=== PATIENT | male | born 1955 | race Caucasian/White ===

== ENCOUNTER → 2016-02-21 | Outpatient (CLI) | payer BC ==
[~2016-02-21] MED LIST: ATOR-22 PO; CIPR-255 PO; FINA5TAB PO; GLC/500 PO; HYDR-5688 PO; METF1TAB85 PO; MULT-506 PO; NITR-5 PO; NITR1CAP16 PO; NITR1CAP32 PO; OMEG10007 PO; PHEN-1043 PO; [UNRECOGNIZED DRUG - OTHER] PO
--- NOTE | 2016-02-21 08:35 | DIAGNOSTIC IMAGING REPORT ---
RENAL ULTRASOUND CLINICAL HISTORY: Hematuria. Neurogenic bladder. Benign prosthetic hyperplasia. COMPARISON STUDY: Renal ultrasound October 27, 2014. TECHNIQUE: Sonography of the kidneys and the urinary bladder was performed. FINDINGS: The right kidney measures 11.9 cm in maximal dimension and the left measures 12.4 cm. There is no hydronephrosis. Note is made of a 1.1 cm cyst arising from the upper pole of the right kidney. Several left renal cysts measure up to 2.4 cm. These are similar to prior exam. Renal echogenicity, size and cortical thickness are normal. Bladder volume was 202 cc on this exam. The patient was unable to void. IMPRESSION: 1. No hydronephrosis. 2. No significant change in several renal cysts. Electronically signed by: Elvis Owens M.D. 02/21/2016 8:33 AM
== END | disposition home or self-care (01) ==
LOC: C.ULTR 07:55
PROVIDERS: ATTEND Urology
DX: N32.0 Bladder-neck obstruction (principal); N31.9 Neuromuscular dysfunction of bladder, unspecified; R31.9 Hematuria, unspecified; N40.0 Benign prostatic hyperplasia without lower urinary tract symptoms; R33.9 Retention of urine, unspecified

== ENCOUNTER 2016-03-08 10:45 | Day surgery (SDC) | payer BC ==
[2016-02-22 10:36] VITALS: BMI 33.0
--- NOTE | 2016-02-22 11:02 | PAT Medication Instructions ---
Service Date Feb 22, 2016. Current Home Medication List Atorvastatin (Lipitor), 20 MG PO QAM Finasteride (Proscar), 5 MG PO QAM Fish Oil (Soledad-3), 1,200 MG PO QAM Metformin Hcl (Glucophage), 1,500 MG PO QAM Metformin Hcl (Glucophage), 500 MG PO QPM Multivitamin (Multivitamin), 1 TAB PO QAM [Nitrofuran], 2 TAB PO PRN PRN for UD Medication Instructions For Your Scheduled Surgery - Hold the following medications 2 weeks prior to surgery: Fish Oil (Soledad-3), 1,200 MG PO QAM - Hold the following medications 48 hours prior to surgery: Metformin Hcl (Glucophage), 1,500 MG PO QAM Metformin Hcl (Glucophage), 500 MG PO QPM - Hold the following medications the morning of surgery: Multivitamin (Multivitamin), 1 TAB PO QAM - Take the following medications the morning of surgery with a sip of water OTHERWISE NOTHING TO EAT OR DRINK AFTER MIDNIGHT: Atorvastatin (Lipitor), 20 MG PO QAM Finasteride (Proscar), 5 MG PO QAM [Nitrofuran], 2 TAB PO PRN PRN for UD (if needed) If you have any questions please call us at [phone] (Unique Bowen PA-C) or [phone] or [phone]
--- NOTE | 2016-02-22 11:37 | DIAGNOSTIC IMAGING REPORT ---
CHEST PREADMISSION(PA/LAT) CLINICAL HISTORY: Preoperative evaluation. COMPARISON STUDY: Chest radiograph December 03, 2006 FINDINGS: Mild elevation of the right hemidiaphragm is unchanged. There is no evidence of pulmonary edema. No consolidation is identified. Cardiomediastinal silhouette is normal. IMPRESSION: No acute cardiopulmonary findings. Electronically signed by: Elvis Owens M.D. 02/22/2016 11:35 AM
[2016-02-22 11:56] LABS: BASO % 0.9 %; BASO ABS # 0.07 K/uL (0-0.2); COMPLETE YES; EOS % 2.7 %; HEMATOCRIT 43.1 % (42-52); IG% 0.3 %; LYMPH % 34.7 %; MEAN CELL VOLUME 86.5 fL (80-100); MEAN CORPUSCULAR HEMOGLOBIN 31.1 pg (25-34); MEAN PLATELET VOLUME 10.4 fL (7.4-10.4); MONO % 4.7 %; NEUT % 56.7 %; PLATELET COUNT 185 K/uL (130-400); RED BLOOD COUNT 4.98 M/uL (4.7-6.1)
[2016-02-22 12:00] LABS: URINE APPEARANCE CLEAR (CLEAR); URINE BILIRUBIN NEG (NEG); URINE COLOR YELLOW; URINE EPITHELIAL CELL AUTO 0-5 /lpf (0-5); URINE NITRITE NEG (NEG); URINE PH 5.5 (4.5-7.5); URINE SPECIFIC GRAVITY 1.019 (1.000-1.030); UROBILINOGEN NEG (NEG)
[2016-02-22 12:04] LABS: MANUAL MICROSCOPIC REQUIRED? NO; REVIEW REQ? NO
[2016-02-22 12:40] LABS: BUN/CREATININE RATIO 19.3 (10-20); CALCIUM 8.8 mg/dl (8.5-10.1); CREATININE 0.98 mg/dl (0.60-1.40); POTASSIUM 4.3 mmol/L (3.5-5.1)
[~2016-03-08] VITALS: Ht 180.3 cm; Wt 107.9 kg
[~2016-03-08 10:45] MED LIST changes: -ATOR-22 PO; -CIPR-255 PO; +CIPROFLOXACIN / D5W 400 MG IV SCH; -FINA5TAB PO; -GLC/500 PO; -HYDR-5688 PO; +LACTATED RINGER'S 1000ML 1,000 ML IV SCH; -METF1TAB85 PO; -MULT-506 PO; -NITR-5 PO; -NITR1CAP16 PO; -NITR1CAP32 PO; -PHEN-1043 PO
[2016-03-08] MEDS ORDERED: EpHEDrine SULFATE INJ 50 MG/ML AMP IV PRN (11:00)
[2016-03-08] MEDS ORDERED: LABETALOL HCL IV 5 MG/ML 20ML IV PRN (11:00)
[2016-03-08] MEDS ORDERED: ONDANSETRON INJ 2 MG/ML 2 ML VIAL IV PRN (11:00)
[2016-03-08] MEDS ORDERED: HYDROmorphone INJ 2 MG/ML SYR/VIAL IV PRN (11:00)
[2016-03-08] MEDS ORDERED: FENTANYL CITRATE INJ 50 MCG/1 ML 2 ML VIAL IV PRN (11:00)
[2016-03-08] MEDS ORDERED: ATROPINE SULFATE 0.1 MG/ML 5ML SYR IV PRN (11:00)
[2016-03-08] MEDS ORDERED: MEPERIDINE HCL 25 MG/ML CARP IV PRN (11:00)
[2016-03-08] MEDS ORDERED: NALOXONE HCL 0.4 MG/1 ML VIAL/CARP IV PRN (11:00)
[2016-03-08] MEDS ORDERED: FLUMAZENIL 0.1 MG/1 ML 10 ML VIAL IV PRN (11:00)
[2016-03-08] MEDS ORDERED: PHENYLEPHRINE 100MCG/ML 5ML SYR IV PRN (11:00)
--- NOTE | 2016-03-08 11:01 | History & Physical Bridge Note ---
H&P Re-Evaluation Bridge Note: I have examined the patient, reviewed the History & Physical and in the interval since the performance of the History & Physical I have noted the following changes of clinical significance: No changes noted
[2016-03-08 11:07] VITALS: BP 192/101; PULSE 80; TEMP 36.4; O2SAT 96; Ht 180.3 cm; Wt 107.9 kg
[2016-03-08] MEDS ORDERED: MIDAZOLAM HCL 1 MG/ML 2ML VIAL ONE (12:15)
[2016-03-08] MEDS ORDERED: FENTANYL CITRATE INJ 50 MCG/1 ML 2 ML VIAL ONE (12:15)
[2016-03-08] MEDS ORDERED: LIDOCAINE HCL 2% 2 ML VIAL (20MG/ML) ONE (12:17)
[2016-03-08] MEDS ORDERED: ONDANSETRON INJ 2 MG/ML 2 ML VIAL ONE (12:17)
[2016-03-08] MEDS ORDERED: DEXAMETHASONE SOD INJ 4 MG/ML VIAL ONE (12:17)
[2016-03-08] MEDS ORDERED: PROPOFOL IV EMULSION 10 MG/ML 20 ML VIAL IV ONE (12:17)
[2016-03-08] MEDS ORDERED: BELLADONNA/OPIUM SUPP 60 MG SUPP PR ONE ×2 (12:42→12:53)
[2016-03-08] MEDS ORDERED: HYDROCODONE/ACETAMOPHEN 5/325MG TAB PO PRN (13:00)
[2016-03-08] MEDS ORDERED: PHEN-1043 PO (13:05)
[2016-03-08] MEDS ORDERED: NITR1CAP16 PO (13:05)
[2016-03-08] MEDS ORDERED: HYDR-5688 PO (13:05)
--- NOTE | 2016-03-08 13:09 | Discharge Instructions ---
Discharge Instructions Admission Reason for Admission: Bph, Retention Discharge Discharge Diagnosis / Problem: BPH, retention Discharge Goals Goal(s): Decrease discomfort, Therapeutic intervention Activity Recommendations Activity Limitations: as noted below Lifting Limitations: gradually increase as tolerated Exercise/Sports Limitations: rest today, gradually increase as tolerated May Resume Sexual Activity: after follow-up appointment Shower/Bathe: no limitations Driving or Machine Use: resume 1 day after discharge . Instructions / Follow-Up Instructions / Follow-Up 1. You may resume taking your Fish Oil in 3 days. 2. You have been prescribed the antibiotic nitrofurantoin. Finish all as directed. 3. Follow-up with Dr. Garrett as scheduled. Please call our office at [phone] if you need to reschedule for any reason. Discharge Diet Recommended Diet: Regular Diet Procedures Procedures Performed: Bipolar Transurethral Resection of Bladder Neck Contracture Pending Studies Studies pending at discharge: no Medical Emergencies . Who to Call and When: Medical Emergencies: If at any time you feel your situation is an emergency, please call 911 immediately. . Non-Emergent Contact Non-Emergency issues call your: Urologist Call Non-Emergent contact if: temperature is above 101.5, your pain is not controlled, your pain is worsening, your pain is unusual for you, your pain is concerning you, you have any medication questions . . "Provider Documentation" section prepared by Elayne Padilla. VTE Core Measure Inpt VTE Proph given/why not?: SCD's [place] Drug Monitoring Program Search Results: patient reviewed within database, no issues identified
--- NOTE | 2016-03-08 13:16 | [facility] Post Operative Brief Note ---
Immediate Operative Summary Operative Date Mar 08, 2016. Pre-Operative Diagnosis Prostatic regrowth, bladder neck scarring Post-Operative Diagnosis Bladder Neck Contracture, Urethral Stricture Procedure(s) Performed Bipolar Transurethral Incision of Bladder Neck Contracture Surgeon Dr. Doc Garrett Qa Automation Architect Surgeon(s) None Estimated Blood Loss Zero Findings Open BNC after incision, small bulbar urethral stricture, UOs in close proximity to bladder neck, avoided during incision Specimens No specimen Drains 20 fr flores 10 cc H2O Anesthesia GAET Complication(s) None Disposition Recovery Room / PACU
--- NOTE | 2016-03-08 13:41 | Anesthesiology Progress Note ---
Anesthesia Post Op Note Date & Time Mar 08, 2016 at 13:41 Vital Signs Pain Intensity: 0 Vital Signs Past 12 Hours Date Time Temp Pulse Resp B/P Pulse Ox O2 Delivery O2 Flow Rate FiO2 03/08/16 13:25 79 16 133/83 99 Mask 10 03/08/16 13:15 82 19 133/87 99 Mask 10 03/08/16 13:08 36.7 83 16 144/85 99 Mask 10 03/08/16 11:19 172/102 03/08/16 11:07 36.4 80 18 192/101 96 Room Air Notes Mental Status: alert / awake / arousable, participated in evaluation Pt Amnestic to Procedure: Yes Nausea / Vomiting: adequately controlled Pain: adequately controlled Airway Patency, RR, SpO2: stable & adequate BP & HR: stable & adequate Hydration State: stable & adequate Anesthetic Complications: no major complications apparent
--- NOTE | 2016-03-08 13:52 | OPERATIVE REPORT ---
DATE OF OPERATION: 03/08/2016 PREOPERATIVE DIAGNOSES: Prostatic regrowth, bladder neck scarring, difficulties with self-catheterization. POSTOPERATIVE DIAGNOSES: Bladder neck contracture and urethral stricture. PROCEDURE: Transurethral incision of bladder neck contracture. SURGEON: Dr. Doc Garrett. VICE PRESIDENT FOR PHILANTHROPY: None. ANESTHESIA: General anesthesia with endotracheal intubation due to poor oral relaxation at the time of anesthesia induction. DRAINS LEFT IN PLACE: Include a 20-Dutch Wong catheter with 10 mL of sterile water in the balloon to gravity drainage. SPECIMENS SENT TO PATHOLOGY: None. ESTIMATED BLOOD LOSS: Minimal. FINDINGS: Small false passage in the bulbar urethra with open urethral strictures, bladder neck contracture incised at the 6 o'clock position due to the presence of ureteral orifices in the proximity of the bladder neck. COMPLICATIONS: None. BRIEF HISTORY OF PRESENT ILLNESS: Mr. Vick is a pleasant 60-year-old male CIC dependent, who has been having difficulties with an inability to perform intermittent catheterization on occasion. Office cystoscopy has demonstrated some scarring at the level of the bladder neck and urethra as well as some mild prostatic regrowth. It was felt that these are possible recent behind his difficulties with self-catheterization. He is here today to unobstruct the prostatic urethra to assist with his catheterization regimen. Intravenous antibiotics provided for antibiotic coverage. Please see H\T\P for further details. SCDs for DVT prophylaxis. DESCRIPTION OF PROCEDURE: The patient was properly identified and brought to the operative suite after identification of appropriate consent on the chart, general anesthesia with endotracheal intubation was initiated. The patient was prepped and draped in standard fashion for this procedure. real time analyst-out procedure was followed. A 24-Dutch resectoscope was able to be advanced into the bladder under direct visualization using a visual obturator. Some tightened areas in the urethra were able to be bypassed without the need for formal dilation. A small false passage in the bulbar urethra was noted possibly due to deviation of the Wong catheter at the time of a previous self-catheterization with a bladder neck contracture. Recurrent bladder neck was appreciated similar to office findings. A full cystoscopy was performed with the 30 and 70 degree lenses demonstrating no intravesical lesions, papillary masses, or calculi. Grade 1-2 trabeculation was present within the bladder. Ureteral orifices were noted to be very close to the vicinity of the bladder neck and both were effluxing clear, yellow urine. Due to there location, relaxing incisions at the 5 and 7 o'clock position would have entered the ureteral orifices and were not completed. Bladder neck was resected at the 6 o'clock position splitting the trigone partially and opening the bladder neck until it was level with the bladder again. Due to the short length of the previously resected prostate as well as the location of the ureteral orifices, more circumferential dissection was not undergone. However, the bladder neck was noted to be well opened and felt to present little difficulties for catheterization in the future. The bulbar urethra with the false passage was felt likely to close with postoperative catheter drainage as planned. Bladder was partially distended and resectoscope was removed. A 20-Dutch Wong catheter was placed without a guidewire or catheter guide and passed into the bladder without resistance or difficulties suggesting an open passageway. Ten mL of sterile water were placed in the balloon and catheter was placed to gravity drainage with return of clear yellow urine. Belladonna and opium suppository was provided for additional postoperative analgesia. FOLLOWUP CARE: The patient was provided with a prescription for Macrobid postoperatively as well as Pyridium and Percocet. Postoperative appointment for trial of void is confirmed and postoperative visit confirmed. The patient is instructed to contact our service should he note any fevers, chills, nausea, vomiting or other significant difficulties in the postoperative period. I attest to the content of the Intraoperative Record and any orders documented therein. Any exceptions are noted below. MTDD
[2016-03-08 14:13] VITALS: BP 122/84; PULSE 78; TEMP 36.7; O2SAT 95
[2016-03-08 14:30] VITALS: BP 124/79; PULSE 62; TEMP 36.5; O2SAT 95
[2016-03-08 14:46] VITALS: BP 131/78; PULSE 71; TEMP 36.5; O2SAT 95
[2016-03-12] MEDS ORDERED: ATOR-22 PO (10:34)
[2016-03-12] MEDS ORDERED: MULT-506 PO (10:34)
[2016-03-12] MEDS ORDERED: GLC/500 PO ×2 (10:34)
[2016-03-12] MEDS ORDERED: FINA5TAB PO (10:34)
== END 2016-03-08 15:18 | disposition home or self-care (01) ==
LOC: C.ACU 10:45
PROVIDERS: ATTEND Urology
DX: N32.0 Bladder-neck obstruction (principal); N31.9 Neuromuscular dysfunction of bladder, unspecified; N40.1 Benign prostatic hyperplasia with lower urinary tract symptoms; R33.9 Retention of urine, unspecified; N35.9 Urethral stricture, unspecified; N32.89 Other specified disorders of bladder

== ENCOUNTER 2016-03-12 13:12 | Emergency (ER) | payer BC, OTHER ==
[~2016-03-12] VITALS: Ht 180.3 cm; Wt 108.5 kg
[~2016-03-12 13:12] MED LIST changes: +ATOR-22 PO; -CIPROFLOXACIN / D5W 400 MG IV SCH; +FINA5TAB PO; +GLC/500 PO; +HYDR-5688 PO; -LACTATED RINGER'S 1000ML 1,000 ML IV SCH; +MULT-506 PO; +NITR1CAP16 PO; -OMEG10007 PO; +PHEN-1043 PO; -[UNRECOGNIZED DRUG - OTHER] PO
[2016-03-12 13:16] VITALS: TEMP 36.5; Ht 180.3 cm; Wt 108.5 kg
--- NOTE | 2016-03-12 15:34 | DIAGNOSTIC IMAGING REPORT ---
ULTRASOUND LEFT VENOUS DOPP LOWER EXT UNILAT CLINICAL HISTORY: Left leg pain COMPARISON STUDY: No previous studies for comparison. FINDINGS: Real-time and color flow Doppler imaging were performed. Flow was seen within the femoral, popliteal and calf veins with no intraluminal thrombus demonstrated. The saphenous vein is patent. IMPRESSION: No evidence of left lower extremity DVT Electronically signed by: Donovan Spaulding M.D. 03/12/2016 3:32 PM Dictated Date/Time: 03/12/2016 3:31 PM
--- NOTE | 2016-03-12 16:18 | EMERGENCY ROOM VISIT NOTE ---
History First contact with patient: 13:52 Chief Complaint: LEG PAIN,LEG INJURY Stated Complaint: PAIN IN LEFT CALF POST-SURGERY History of Present Illness The patient is a 60 year old male who presents to the Emergency Department by private vehicle for evaluation of cramping to the LEFT side. He reports that after waking this morning he noticed pain and cramping to the LEFT sided calf. He recently had a prostate/bladder procedure performed on by Dr. Garrett. He contacted their office and was directed to the emergency department for further evaluation and management. The patient reports a history of blood clots or bleeding disorders. He reports no family history of the same. The patient rates his current discomfort as a 5/10. He denies any fevers, chills, chest pain, palpitations, fevers of breath. He denies the use of blood thinners. He denies any numbness or tingling into the distal extremity. Review of Systems A complete 10-point Review of Systems was discussed with the patient, with pertinent positives and negatives listed in the History of Present Illness. All remaining Review of Systems questions can be considered negative unless otherwise specified. Social History Smoking Status: Never Smoker Smokeless Tobacco Use: No Drug Use: none Current/Historical Medications Scheduled Atorvastatin (Lipitor), 20 MG PO QAM Finasteride (Proscar), 5 MG PO QAM Metformin Hcl (Glucophage), 1,500 MG PO QAM Metformin Hcl (Glucophage), 500 MG PO QPM Multivitamin (Multivitamin), 1 TAB PO QAM Nitrofurantoin Monohyd Macro (Macrobid), 100 MG PO BID Scheduled PRN Hydrocodone/Acetaminophen 5MG/325MG (Sarah Ann 5MG/325MG), 1-2 TABLET PO Q4 PRN for Pain Phenazopyridine HCl (Phenazopyridine HCl), 200 MG PO TID PRN for Bladder pain Allergies Coded Allergies: Penicillins (Verified Allergy, Unknown, UNKNOWN, 03/12/16) Physical Exam Vital Signs Date Time Temp Pulse Resp B/P Pulse Ox O2 Delivery O2 Flow Rate FiO2 03/12/16 16:35 98 18 157/102 98 03/12/16 15:37 64 16 167/110 95 Room Air 03/12/16 13:16 36.5 99 18 188/118 95 Room Air Pain Rating (0-10): 5 Physical Exam VITAL SIGNS - Vital signs and nursing notes were reviewed. GENERAL - 60-year-old male appearing his stated age and in noticeable discomfort throughout the exam. MUSCULOSKELETAL - the LEFT lower extremity is without erythema, edema, or lymphangitic streaking. No tenderness to palpation. Compartments of the calf are soft and nontender to palpation. No palpable cords. +5/5 strength appreciated bilaterally. Full dorsiflexion and plantarflexion of the affected foot appreciated. NEUROLOGIC/VASCULAR - Neurovascularly intact distally with +3/5 dorsalis pedis pulses palpated bilaterally. Normal sensation to light and sharp touch appreciated distally. Medical Decision & Procedures ER Provider Diagnostic Interpretation: Radiological imaging and reports were reviewed by myself. Radiologist's Interpretation as follows: ULTRASOUND LEFT VENOUS DOPP LOWER EXT UNILAT CLINICAL HISTORY: Left leg pain COMPARISON STUDY: No previous studies for comparison. FINDINGS: Real-time and color flow Doppler imaging were performed. Flow was seen within the femoral, popliteal and calf veins with no intraluminal thrombus demonstrated. The saphenous vein is patent. IMPRESSION: No evidence of left lower extremity DVT ED Course Patient was seen and evaluated by myself. Previous records were reviewed. Ultrasound of the LEFT lower extremity was obtained. Imaging results as above. Imaging results were reviewed with the patient who acknowledges understanding. The patient was educated on worrisome symptoms for return visit to the emergency department. Patient discharged home in good condition. Medical Decision Given the patient's presentation and stated complaint, I did elect to perform the above-mentioned workup. The patient resents today with pain and cramping to the LEFT calf. He had a recent surgical procedure. He is not on blood thinners. I did review his prior records and there were no significant electrolyte abnormalities. I do not feel that repeat lab draw is necessary at this situation. Ultrasound was obtained and found to be unremarkable. The patient will follow-up with his primary care provider from today's visit or return for any change or worsening symptoms. Patient discharged home in good condition. In the evaluation and treatment of this patient, the following differential diagnoses were considered: Cellulitis, dermatitis, DVT, compartment syndrome, arterial occlusion, amongst others. Impression Primary Impression: Calf cramp Departure Information Dispostion Home / Self-Care Condition GOOD Referrals Isak Gray M.D. (PCP) Patient Instructions My [facility] Additional Instructions You have been seen in the emergency department today for cramping to the LEFT calf. Continue range of motion exercises. For pain control, you can use the following [id number] medicines (if >12 yo): - Regular strength (325mg/tab) Tylenol (acetaminophen) 2 tabs every 4-6 hours as needed. Do not exceed 12 tablets in a 24 hour period. Avoid taking more than 4 grams (4000 mg) of Tylenol per day. This includes any other sources of acetaminophen you may take on a regular basis. - Regular strength (200 mg/tab) Advil (ibuprofen) 1-2 tabs every 4-6 hours as needed. Do not exceed a dose of 3200 mg per day. Follow-up with your primary care provider from today's visit. Return for any changing or worsening symptoms.
[2016-03-12 16:35] VITALS: BP 157/102; PULSE 98; O2SAT 98
== END 2016-03-12 16:35 | disposition home or self-care (01) ==
LOC: C.EDB 13:13 → C.EDD 16:35
DX: R25.2 Cramp and spasm (principal)

== ENCOUNTER 2017-02-20 15:51 | Emergency (ER) | payer BC ==
[~2017-02-20] VITALS: Ht 180.3 cm; Wt 101.7 kg
[~2017-02-20 15:51] MED LIST changes: -HYDR-5688 PO; -NITR1CAP16 PO
[2017-02-20 15:59] VITALS: TEMP 36.9; Ht 180.3 cm; Wt 101.7 kg
[2017-02-20] MEDS ORDERED: CIPROFLOXACIN 500 MG TAB PO STA (16:11)
--- NOTE | 2017-02-20 16:40 | EMERGENCY ROOM VISIT NOTE ---
History Report prepared by Nathan: Sophia Watts Under the Supervision of: Dr. Jean-Paul Echols M.D. First contact with patient: 16:03 Chief Complaint: CATHETER REPLACEMENT Stated Complaint: CATH TO PEE, AND BECOMING HARDER TO CATH History of Present Illness The patient is a 61 year old male who presents to the Emergency Room with complaints of worsening urinary symptoms beginning KITCHEN ASSISTANT. The patient typically self-catheterizes himself. He states that is has gotten progressively more difficult to catheterize himself today. He feels like he is unable to get the catheter in the entire way. The patient states that he also felt like he was developing a UTI. His urologist has prescribed him Macrobid that he has been advised to take if he feels like he is getting a UTI. He started taking this antibiotic today for his symptoms. The patient reports some lower abdominal discomfort that he rates as a 2/10 in severity. He denies any hematuria. Source of History: patient Onset: KITCHEN ASSISTANT Position: other (urinary bladder) Symptom Intensity: 2/10 Timing: worsening Associated Symptoms: + abdominal pain Note: Pt denies hematuria. Review of Systems See HPI for pertinent positives & negatives. A total of 10 systems reviewed and were otherwise negative. Past Medical & Surgical Medical Problems: (1) Diabetes mellitus Surgical Problems: (1) History of prostate surgery Family History Cancer Diabetes mellitus Social History Smoking Status: Never Smoker Smokeless Tobacco Use: No Alcohol Use: none Drug Use: none Housing Status: lives with family Occupation Status: employed Current/Historical Medications Scheduled Atorvastatin (Lipitor), 20 MG PO QAM Ciprofloxacin Hcl (Cipro), 1 TAB PO BID Finasteride (Proscar), 5 MG PO QAM Metformin Hcl (Metformin Hcl Er), 1,000 MG PO BID Multivitamin (Multivitamin), 1 TAB PO QAM Scheduled PRN Nitrofurantoin Macrocrystals (Macrodantin), 100 MG PO Q12 PRN for Urinary Infection Allergies Coded Allergies: Penicillins (Verified Allergy, Unknown, UNKNOWN, 03/12/16) Physical Exam Vital Signs Date Time Temp Pulse Resp B/P (MAP) Pulse Ox O2 Delivery O2 Flow Rate FiO2 02/20/17 18:52 77 18 145/87 97 02/20/17 18:17 64 18 149/107 97 Room Air 02/20/17 15:59 36.9 91 17 163/111 96 Room Air Physical Exam GENERAL: Patient is a healthy-appearing well-nourished 61 year old male. HEAD: Normocephalic atraumatic EYES: Ocular movements intact pupils equal and react to light OROPHARYNX mucous membranes are moist no exudates present no erythema or edema present NECK: Supple no nuchal rigidity CHEST: Good equal expansion LUNGS: Clear and equal to auscultation CARDIAC: Normal S1 and S2 ABDOMEN: Soft nontender no guarding BACK: No CVA tenderness EXTREMITIES: No pain upon palpation normal muscle strength in all groups no clubbing cyanosis or edema NEURO: Patient is following commands and answering questions appropriately. Alert and oriented x3 Cranial Nerves 2-12 grossly intact Medical Decision & Procedures Laboratory Results Test 02/20/17 18:30 Urine Color YELLOW Urine Appearance CLEAR (CLEAR) Urine pH 5.0 (4.5-7.5) Urine Specific [place] 1.016 (1.000-1.030) Urine Protein NEG (NEG) Urine Glucose (UA) NEG (NEG) Urine Ketones NEG (NEG) Urine Occult Blood NEG (NEG) Urine Nitrite NEG (NEG) Urine Bilirubin NEG (NEG) Urine Urobilinogen NEG (NEG) Urine Leukocyte Esterase SMALL (NEG) Urine WBC (Auto) 1-5 /hpf (0-5) Urine RBC (Auto) 5-10 /hpf (0-4) Urine Hyaline Casts (Auto) 1-5 /lpf (0-5) Urine Epithelial Cells (Auto) 20-30 /lpf (0-5) Urine Bacteria (Auto) NEG (NEG) Medications Administered Medications (Trade) Dose Ordered Sig/Pito Route Start Time Stop Time Status Last Admin Dose Admin Ciprofloxacin (Cipro Tab) 500 mg NOW STAT PO 02/20/17 16:11 02/20/17 16:12 DC 02/20/17 16:19 500 MG ED Course 1603: Past medical records reviewed. The patient was evaluated in room A12B. A complete history and physical examination was performed. 1610: Ciprofloxacin 500 mg PO 165: I updated the patient and he is doing well. 1818: I reassessed the patient at this time. He is feeling better and resting comfortably. A Wong catheter was successfully placed. I discussed the results and treatment plan with the patient. I answered all pertaining questions that he had. He expressed understanding and verbalized agreement. The patient will be discharged home. Medical Decision Differential diagnoses includes prostatitis, UTI, urinary retention. This is a 61-year-old male who presents emergency department complaining of urinary retention. We were able to place a Wong here in the emergency department and the patient had immediate improvement in his symptoms. He was placed on Cipro and will follow-up with his urologist. Patient was in agreement with the treatment plan. Medication Reconcilliation Current Medication List: was personally reviewed by me Blood Pressure Screening Patient's blood pressure: Elevated blood pressure Blood pressure disposition: Referred to PCP Impression Primary Impression: Urinary retention Scribe Attestation The scribe's documentation has been prepared under my direction and personally reviewed by me in its entirety. I confirm that the note above accurately reflects all work, treatment, procedures, and medical decision making performed by me. Departure Information Dispostion Home / Self-Care Prescriptions Ciprofloxacin Hcl (CIPRO) 500 Mg Tab 1 TAB PO BID for 14 Days, #28 TAB Prov: Jean-Paul Echols MD 02/20/17 Referrals Isak Gray M.D. (PCP) Doc Garrett MD, Urology Forms HOME CARE DOCUMENTATION FORM, IMPORTANT VISIT INFORMATION Patient Instructions ED Catheter Care Wong, ED Retention Urinary Male, My [facility] Additional Instructions Follow up with DR Garrett's office You have been examined and treated today on an emergency basis only. This is not a substitute for, or an effort to provide, complete comprehensive medical care. It is impossible to recognize and treat all injuries or illnesses in a single emergency department visit. It is therefore important that you follow up closely with Dr Gray. Call as soon as possible for an appointment. Thank you for your time and consideration. I look forward to speaking with you again soon. Please don't hesitate to call us if you have any questions.
[2017-02-20] MEDS ORDERED: METF1TAB85 PO (17:06)
[2017-02-20] MEDS ORDERED: NITR1CAP32 PO (17:06)
[2017-02-20] MEDS ORDERED: CIPR-255 PO (18:16)
[2017-02-20 18:52] VITALS: BP 145/87; PULSE 77; O2SAT 97
== END 2017-02-20 18:53 | disposition home or self-care (01) ==
LOC: C.EDB 15:53 → C.EDA 18:53
DX: R33.9 Retention of urine, unspecified (principal); E11.9 Type 2 diabetes mellitus without complications; Z98.890 Other specified postprocedural states; Z83.3 Family history of diabetes mellitus; Z79.84 Long term (current) use of oral hypoglycemic drugs